=== PATIENT | male | born 1975 | race African-American/Black ===

== ENCOUNTER 2020-06-05 18:11 | Emergency (ER) | payer OTHER ==
[~2020-06-05] VITALS: Ht 172.7 cm; Wt 111.7 kg
[2020-06-05 18:21] VITALS: BP 123/76
--- NOTE | 2020-06-05 19:12 | PHYS DOC ---
Past History Past Medical History: Diabetes, Hypertension (MOLLY CARBAJAL APRN) Past Surgical History: No Surgical History (MOLLY CARBAJAL APRN) Alcohol Use: None (MOLLY CARBAJAL APRN) Adult General Chief Complaint Chief Complaint: FOREIGN BODY HPI HPI Patient is a 45-year-old male presents emergency department with chief complaint he thinks but is not sure he might have broken a needle off in his arm while giving himself his insulin shot just prior to arrival. Patient states he was given his normal NPH dose into his right tricep when he noticed the needle was not on the syringe after the injection. Patient denies any pain or sensations of foreign body to his right triceps area, states it did not bleed, states he looked but could not find any protruding needles from his arm. Patient states he is here to see if there is a needle still left in his right triceps area. Patient denies any other physical complaints or physical concerns. (MOLLY CARBAJAL APRN) Review of Systems Review of Systems 14 body systems of review of systems have been reviewed. See HPI for pertinent positives and negative responses, otherwise all other systems are negative, nonpertinent or noncontributory. (MOLLY CARBAJAL APRN) Allergies Allergies Allergies Coded Allergies Type Severity Reaction Last Updated Verified No Known Drug Allergies 06/05/20 No (MOLLY CARBAJAL APRN) Physical Exam Physical Exam Constitutional: Well developed, well nourished, no acute distress, non-toxic appearance. 45-year-old male no apparent distress HENT: Normocephalic, atraumatic, bilateral external ears normal, oropharynx moist, no oral exudates, nose normal. Eyes: Conjunctiva appear normal, no drainage appreciated, patient tracking normally with eyes. Cardiovascular: No peripheral cyanosis, distal cap refill less than 2 seconds. Lungs & Thorax: Patient in no apparent respiratory distress, no audible adventitious lung sounds appreciated. Skin: Warm, dry, no erythema, no rash. See extremity note. Extremities: No tenderness, no cyanosis, no clubbing, ROM intact, no edema. Examined right triceps area where patient believes he may have injected himself and broken a needle off with his insulin syringe just prior to arrival. No foreign bodies appreciated. No signs of ecchymosis or bleeding appreciated. Full range of motion of right upper extremity, no loss of sensation distally, distal cap refill less than 2 seconds, +2 radial pulse. Neurologic: Alert and oriented X 3, normal motor function, normal sensory function, no focal deficits noted. [] Psychologic: Affect normal, judgement normal, mood normal. [] (MOLLY CARBAJAL APRN) Current Patient Data Vital Signs Vital Signs Date Time Temp Pulse Resp B/P (MAP) Pulse Ox O2 Delivery O2 Flow Rate FiO2 06/05/20 18:21 98.0 88 18 123/76 (92) 97 Room Air (MOLLY CARBAJAL APRN) EKG EKG [] (MOLLY CARBAJAL APRN) Radiology/Procedures Radiology/Procedures PATIENT: ALONDRA TSANG ACCOUNT: [id number] : 1975 LOCATION: ER AGE: 45 SEX: M EXAM STATUS: REG ER ORD. PHYSICIAN: MOLLY CARBAJAL APRN REASON: Insulin needle broke off in distal third tricep area right arm PROCEDURE: HUMERUS RIGHT Exam: Right humerus 2 views INDICATION: Insulin needle broke off and distal triceps TECHNIQUE: Frontal and lateral views of the right humerus Comparisons: None FINDINGS: Bone mineralization is normal. No acute or healed fractures. Soft tissues are unremarkable. Joint spaces are well-maintained. IMPRESSION: No acute osseous abnormality. No radiopaque foreign body identified. Electronically signed by: Selam Smalls MD (06/05/2020 7:26 PM) [facility] DICTATED AND SIGNED BY: SELAM SMALLS MD DATE: 06/05/201923 CC: MOLLY CARBAJAL APRN; PCP,NO ~MTH0 0 (MOLLY CARBAJAL APRN) Heart Score C/O Chest Pain: No Risk Factors: Risk Factors: DM, Current or recent (<one month) smoker, HTN, HLP, family history of CAD, obesity. Risk Scores: Risk Factors: DM, Current or recent (<one month) smoker, HTN, HLP, family history of CAD, obesity. (MOLLY CARBAJAL APRN) Course & Med Decision Making Course & Med Decision Making Pertinent Labs and Imaging studies reviewed. (See chart for details) 45-year-old male, vital signs reviewed, presents emergency department concerning a possible foreign body in his right triceps area. Physical examination was unremarkable, unable to visualize nor palpate foreign body in right triceps area, related to insulin needles very small size, will order x-ray imaging to rule out foreign body. Patient denied any pain. No foreign body found by x-ray imaging, discussed with patient that needle possibly fell out onto floor and he was unable to find it. Patient agrees with this as he does not have any pain or discomfort in that area. Patient was relieved to know he has no needle stuck in his arm. Patient was given discharge home instructions, follow-up with primary care as needed, return emergency department for worsening symptoms or other concerns, patient was discharged home without incident. Diagnosis feared condition not demonstrated. (MOLLY CARBAJAL APRN) Dragon Disclaimer Dragon Disclaimer This electronic medical record was generated, in whole or in part, using a voice recognition dictation system. (MOLLY CARBAJAL APRN) Attending Co-Sign The patient was seen and interviewed as well as examined at the bedside. The chart was reviewed. The case was discussed. Agree with the plan of care. (KAL REYES DO) Departure Departure: Impression: Primary Impression: Feared condition not demonstrated Disposition: 01 HOME / SELF CARE / HOMELESS Condition: GOOD Referrals: PCP,NO (PCP) Additional Instructions: You were seen in emergency department for a possible needle stuck in your right arm. An x-ray was performed and no needle was seen. It is quite possible as we discussed the needle came out and fell on the floor and you are unable to find it. Please return to the emergency department for worsening symptoms or other concerns, follow-up with your primary care as needed. EMERGENCY DEPARTMENT GENERAL DISCHARGE INSTRUCTIONS Thank you for coming to [facility] (ED) today and trusting us with you care. We trust that you had a positivie experience in our Emergency Department. If you wish to speak to the department management, you may call the director at [phone]. YOUR FOLLOW UP INSTRUCTIONS ARE FOLLOWS: 1. Do you have a private Doctor? If you do not have a private doctor, please ask for a resource list of physicians or clinics that may be able to assist you with follow up care. 2. The Emergency Physician has interpreted your x-rays. The X-Ray specialist will also review them. If there is a change in the findings, you will be notified in 48 hours when at all possible. 3. A lab test or culture has been done, your results will be reviewed and you will be notified if you need a change in treatment. ADDITIONAL INSTRUCTIONS AND INFORMATION: 1. Your care today has been supervised by a physician who is specially trained in emergency care. Many problems require more than one evaluation for a complete diagnosis and treatment. We recommend that you schedule your follow up appointment as recommended to ensure complete treatment of you illness or injury. If you are unable to obtain follow up care and continue to have a problem, or if your condition worsens, we recommend that you return to the ED. 2. We are not able to safely determine your condition over the phone nor are we able to give sound medical advice over the phone. For these safety reasons, if you call for medical advice we will ask you to come to the ED for further evaluation. 3. If you have any questions regarding these discharge instructions please call the ED at [phone]. SAFETY INFORMATION: In the interest of safety, wellness, and injury prevention; we encourage you to wear your sealbelt, if you smoke; quite smoking, and we encourage family to use a protective helmet for bicycling and other sporting events that present an increased risk for head injury. IF YOUR SYMPTOMS WORSEN OR NEW SYMPTOMS DEVELOP, OR YOU HAVE CONCERNS ABOUT YOUR CONDITION; OR IF YOUR CONDITION WORSENS WHILE YOU ARE WAITING FOR YOUR FOLLOW UP APPOINTMENT; EITHER CONTACT YOUR PRIMARY CARE DOCTOR, THE PHYSICIAN WHOSE NAME AND NUMBER YOU WERE GIVEN, OR RETURN TO THE ED IMMEDIATELY. MOLLY CARBAJAL APRN Jun 05, 2020 19:12 KAL REYES DO Jun 06, 2020 01:41
--- NOTE | 2020-06-05 19:29 | RAD ---
Exam: Right humerus 2 views INDICATION: Insulin needle broke off and distal triceps TECHNIQUE: Frontal and lateral views of the right humerus Comparisons: None FINDINGS: Bone mineralization is normal. No acute or healed fractures. Soft tissues are unremarkable. Joint spa juhi are well-maintained. IMPRESSION: No acute osseous abnormality. No radiopaque foreign body identified. Electronically signed by: Selam Aaron MD (06/05/2020 7:26 PM) MARIANN
== END 2020-06-05 20:07 | disposition home or self-care (01) ==
LOC: ER 18:11
DX: Z71.1 Person with feared health complaint in whom no diagnosis is made (principal); E11.9 Type 2 diabetes mellitus without complications; I10 Essential (primary) hypertension
CPT/HCPCS: 73060; 99283

== ENCOUNTER 2020-06-06 19:07 | Emergency (ER) | payer OTHER ==
[~2020-06-06] VITALS: Ht 172.7 cm; Wt 111.7 kg
[2020-06-06 21:32] LABS: BILIRUBIN,URINE NEG (NEG); CLARITY,URINE CLEAR; COLOR,URINE COLORLESS; GLUCOSE,URINE >=1000 mg/dL (NEG)
[2020-06-06 21:33] LABS: BACTERIA,URINE 0 /HPF (0-FEW); NITRITE,URINE NEG (NEG); RBC,URINE 0 /HPF (0-2); UROBILINOGEN,URINE 0.2 mg/dL (0.2 mg/dL); WBC,URINE 0 /HPF (0-4)
[2020-06-06 21:40] LABS: CALCIUM 9.6 mg/dL (8.5-10.1); CREATININE 1.8 mg/dL (0.7-1.3); GFR 49.8; POTASSIUM 5.1 mmol/L (3.5-5.1)
[2020-06-06] MEDS ORDERED: INSULIN REGULAR 100 UNIT/ML 3ML VIAL. IV ONE (22:00)
[2020-06-06] MEDS ORDERED: IV NORMAL SALINE 1,000ML 1,000 ML IV ONE (22:00)
[2020-06-07] MEDS ORDERED: LANC1COM6 MC (00:07)
[2020-06-07] MEDS ORDERED: BLOO-1396 MC (00:07)
--- NOTE | 2020-06-07 00:07 | PHYS DOC ---
Past History Past Medical History: Diabetes, Hypertension Past Surgical History: No Surgical History Alcohol Use: None Adult General Chief Complaint Chief Complaint: BLOOD SUGAR PROBLEM [facility] HPI Patient is a 45yo t2DM male presenting for hyperglycemia. He reports being recently released from jailed and was started on NPH insulin for his diabetes. His last HA1C is unknown. He has insulin at home but doesn't check his FSBG, states he can tell when it's high and gives insulin accordingly. He presents complaing of classic hyperglycemia symptoms such as thirst, increased hunger and urine output. He wants to be switched to sliding scale insulin today Review of Systems Review of Systems Fourteen body systems of review of systems have been reviewed. See HPI for pertinent positives and negative responses, other sage all other systems are negative, non-pertinent or non-contributory Current Medications Current Medications Current Medications Medications (Trade) Dose Ordered Sig/Grace Start Time Stop Time Status Last Admin Dose Admin Insulin Human Regular (HumuLIN R VIAL) 5 unit 1X ONCE 06/06/20 22:00 06/06/20 22:01 DC 06/06/20 22:28 5 UNIT Sodium Chloride 1,000 ml @ 1,000 mls/hr 1X ONCE 06/06/20 22:00 06/06/20 22:59 DC 06/06/20 22:27 1,000 MLS/HR Allergies Allergies Allergies Coded Allergies Type Severity Reaction Last Updated Verified No Known Drug Allergies 06/05/20 No Physical Exam Physical Exam Constitutional: Well developed, well nourished, no acute distress, non-toxic appearance. HENT: Normocephalic, atraumatic, bilateral external ears normal, oropharynx moist, no oral exudates, nose normal. Eyes: PERRLA, EOMI, conjunctiva normal, no discharge. Neck: Normal range of motion, no tenderness, supple, no stridor. Cardiovascular: Heart rate regular, sinus rhythm, no murmurs rubs or gallops Lungs & Thorax: Bilateral breath sounds clear to auscultation Abdomen: Bowel sounds normal, soft, no tenderness, no masses, no pulsatile masses. Nonsurgical abdomen, no peritoneal signs Skin: Warm, dry, no erythema, no rash. Back: No tenderness, no CVA tenderness. Extremities: No tenderness, no cyanosis, no clubbing, ROM intact, no edema. Neurologic: Alert and oriented X 3, grossly normal motor & sensory function, no focal deficits noted. Psychologic: Affect normal, judgement normal, mood normal. Current Patient Data Vital Signs Vital Signs Date Time Temp Pulse Resp B/P (MAP) Pulse Ox O2 Delivery O2 Flow Rate FiO2 06/06/20 19:59 97.0 89 16 138/90 (106) 96 Room Air Lab Results Laboratory Tests Test 06/06/20 19:59 06/06/20 20:47 06/06/20 20:58 06/06/20 23:05 Urine Collection Type Unknown Urine Color Colorless Urine Clarity Clear Urine pH 6.5 Urine Specific [place] 1.010 Urine Protein Neg (NEG-TRACE) Urine Glucose (UA) >=1000 mg/dL (NEG) Urine Ketones (Stick) Neg mg/dL (NEG) Urine Blood Neg (NEG) Urine Nitrite Neg (NEG) Urine Bilirubin Neg (NEG) Urine Urobilinogen Dipstick 0.2 mg/dL (0.2 mg/dL) Urine Leukocyte Esterase Neg (NEG) Urine RBC 0 /HPF (0-2) Urine WBC 0 /HPF (0-4) Urine Squamous Epithelial Cells None /LPF Urine Bacteria 0 /HPF (0-FEW) Glucose (Fingerstick) 564 mg/dL (70-99) *H 471 mg/dL (70-99) H Sodium Level 131 mmol/L (136-145) L Potassium Level 5.1 mmol/L (3.5-5.1) Chloride Level 93 mmol/L (98-107) L Carbon Dioxide Level 29 mmol/L (21-32) Anion Gap 9 (6-14) Blood Urea Nitrogen 28 mg/dL (8-26) H Creatinine 1.8 mg/dL (0.7-1.3) H Estimated GFR (Cockcroft-Gault) 49.8 Glucose Level 620 mg/dL (70-99) *H Calcium Level 9.6 mg/dL (8.5-10.1) EKG EKG [] Radiology/Procedures Radiology/Procedures [] Heart Score C/O Chest Pain: No HEART Score for Chest Pain: HEART Score for Chest Pain Response (Comments) Value History Slighlty/Non-Suspicious 0 Age < 45 0 Risk Factors >3 Risk Factors or Hx CAD 2 Total 2 Risk Factors: Risk Factors: DM, Current or recent (<one month) smoker, HTN, HLP, family history of CAD, obesity. Risk Scores: Risk Factors: DM, Current or recent (<one month) smoker, HTN, HLP, family history of CAD, obesity. Course & Med Decision Making Course & Med Decision Making Hemodynamically stable with HPI concerning for poorly managed t2dm. PE unremarkable. ER workup concerning for hyperglycemia and SABRINA vs CKD. IVF rehydration and IV insulin improved FSBG. Patient started demanding food during visit. Started eating candy bar during visit when discussion was had regarding trying to decrease his FSBG. 25mins patient/diabetes educated given to patient. I discussed role of admission for continued glycemic control and IVF rehydration but he declined. I advised he keep NPH because he has plenty of this and to use/actually check his FSBG daily RX glucometer, lancets, test strips etc written and close PCP/health department follow up was discussed Patient left AMA prior to receiving discharge materials and receiving more education Dragon Disclaimer Dragon Disclaimer This electronic medical record was generated, in whole or in part, using a voice recognition dictation system. Departure Departure: Impression: Primary Impression: Uncontrolled type 2 diabetes mellitus with hyperglycemia Additional Impression: SABRINA (acute kidney injury) Disposition: LEFT AWOL/ELOPED Condition: GUARDED Referrals: PCPSARA (PCP) Patient Instructions: Acute Kidney Injury, Hyperglycemia Additional Instructions: As discussed prior to ER departure, you were offered admission for your acute kidney injury and high blood sugar, you refused. As such, you accept the risks discussed of worsened high blood sugar Scripts Lancets/Blood Glucose Strips (Lancet 30G-Glucose Test Strip) 1 Each Combo..pkg EACH MC for HYPERGLYCEMIA, #100 Check your fingerstick blood sugar 30 minutes before every meal at least 3 times daily Prov: PENELOPE REYES DO 06/07/20 Lancets/Blood Glucose Strips (Lancet 30G-Glucose Test Strip) 1 Each Combo..pkg EACH MC for HYPERGLYCEMIA, #100 Please check fingerstick blood sugar 3 times daily before meals Prov: PENELOPE REYES DO 06/07/20 Blood-Glucose Meter (Accu-Chek Guide Me Glucose Mtr) 1 Each Each EACH MC for GLUCOSE CONTROL, #1 Please check your fingerstick blood sugar before every meal at least 3 times daily and keep log for primary care physician review Prov: PENELOPE REYES DO 06/07/20 Problem Qualifiers PENELOPE REYES DO Jun 07, 2020 00:07
[2020-06-07 00:09] VITALS: BP 145/94
== END 2020-06-07 00:14 | disposition left against medical advice (07) ==
LOC: ER 19:07
DX: N17.9 Acute kidney failure, unspecified (principal); E11.65 Type 2 diabetes mellitus with hyperglycemia; I10 Essential (primary) hypertension
CPT/HCPCS: 36415; 80048; 81001; 82947; 96361; 96374; 99283; J1815; J7030

== ENCOUNTER 2020-06-07 17:46 | Emergency (ER) | payer OTHER ==
[~2020-06-07] VITALS: Ht 172.7 cm; Wt 111.7 kg
[~2020-06-07 17:46] MED LIST: BLOO-1396 MC; LANC1COM6 MC
--- NOTE | 2020-06-07 18:12 | PHYS DOC ---
Past History Past Medical History: Diabetes, Hypertension Past Surgical History: No Surgical History Alcohol Use: None Adult General Chief Complaint Chief Complaint: BLOOD SUGAR PROBLEM HPI HPI Patient is a 45-year-old male who presents for hyperglycemia. He was seen at our facility by myself yesterday. I offered him admission at that time due to hyperglycemia and SABRINA but patient left AMA. He has poor health/medical literacy, he is a recently diagnosed type II diabetic and is on NPH insulin, does not check his blood sugars daily. I educated patient extensively on diabetes yesterday and wrote prescription for glucometer, lancets, blood strips etc., patient did not fill these today. He presents wanting to "fix my kidneys and get my sugar under 200 today". He was mad that he was not fed food yesterday and so, he states he came prepared today and has packaged pizza and candy bars for his visit. No fever, no significant changes in health since seen 24 hours ago Review of Systems Review of Systems Fourteen body systems of review of systems have been reviewed. See HPI for pertinent positives and negative responses, other sage all other systems are negative, non-pertinent or non-contributory Allergies Allergies Allergies Coded Allergies Type Severity Reaction Last Updated Verified No Known Drug Allergies 06/05/20 No Physical Exam Physical Exam Constitutional: Well developed, well nourished, no acute distress, non-toxic appearance. HENT: Normocephalic, atraumatic, bilateral external ears normal, oropharynx moist, no oral exudates, nose normal. Eyes: PERRLA, EOMI, conjunctiva normal, no discharge. Neck: Normal range of motion, no tenderness, supple, no stridor. Cardiovascular: Heart rate regular, sinus rhythm, no murmurs rubs or gallops Lungs & Thorax: Bilateral breath sounds clear to auscultation Abdomen: Bowel sounds normal, soft, no tenderness, no masses, no pulsatile masses. Nonsurgical abdomen, no peritoneal signs Skin: Warm, dry, no erythema, no rash. Back: No tenderness, no CVA tenderness. Extremities: No tenderness, no cyanosis, no clubbing, ROM intact, no edema. Neurologic: Alert and oriented X 3, grossly normal motor & sensory function, no focal deficits noted. Psychologic: Affect normal, judgement normal, mood normal. Current Patient Data Vital Signs Vital Signs Date Time Temp Pulse Resp B/P (MAP) Pulse Ox O2 Delivery O2 Flow Rate FiO2 06/07/20 18:01 98.4 98 16 124/82 (96) 98 Room Air Lab Results Laboratory Tests Test 06/07/20 18:26 White Blood Count 6.5 x10^3/uL Red Blood Count 4.95 x10^6/uL Hemoglobin 13.0 g/dL Hematocrit 40.0 % Mean Corpuscular Volume 81 fL Mean Corpuscular Hemoglobin 26 pg Mean Corpuscular Hemoglobin Concent 33 g/dL Red Cell Distribution Width 15.0 % Platelet Count 171 x10^3/uL Neutrophils (%) (Auto) 55 % Lymphocytes (%) (Auto) 32 % Monocytes (%) (Auto) 10 % Eosinophils (%) (Auto) 3 % Basophils (%) (Auto) 1 % Neutrophils # (Auto) 3.5 x10^3uL Lymphocytes # (Auto) 2.0 x10^3/uL Monocytes # (Auto) 0.7 x10^3/uL Eosinophils # (Auto) 0.2 x10^3/uL Basophils # (Auto) 0.0 x10^3/uL Sodium Level 130 mmol/L Potassium Level 4.7 mmol/L Chloride Level 94 mmol/L Carbon Dioxide Level 27 mmol/L Anion Gap 9 Blood Urea Nitrogen 26 mg/dL Creatinine 1.6 mg/dL Estimated GFR (Cockcroft-Gault) 57.1 BUN/Creatinine Ratio 16 Glucose Level 688 mg/dL Calcium Level 8.7 mg/dL Total Bilirubin 0.4 mg/dL Aspartate Amino Transf (AST/SGOT) 16 U/L Alanine Aminotransferase (ALT/SGPT) 49 U/L Alkaline Phosphatase 74 U/L Total Protein 7.5 g/dL Albumin 3.7 g/dL Albumin/Globulin Ratio 1.0 Current Medications Medications (Trade) Dose Ordered Sig/Grace Route PRN Reason Start Time Stop Time Status Last Admin Dose Admin Sodium Chloride 1,000 ml @ 1,000 mls/hr 1X ONCE IV 06/07/20 18:15 06/07/20 19:14 DC 06/07/20 18:15 Insulin Human Regular (HumuLIN R VIAL) 10 unit 1X ONCE IV 06/07/20 19:15 06/07/20 19:16 DC 06/07/20 19:25 EKG EKG [] Radiology/Procedures Radiology/Procedures [] Heart Score C/O Chest Pain: No HEART Score for Chest Pain: HEART Score for Chest Pain Response (Comments) Value History Slighlty/Non-Suspicious 0 Age < 45 0 Risk Factors >3 Risk Factors or Hx CAD 2 Total 2 Risk Factors: Risk Factors: DM, Current or recent (<one month) smoker, HTN, HLP, family history of CAD, obesity. Risk Scores: Risk Factors: DM, Current or recent (<one month) smoker, HTN, HLP, family history of CAD, obesity. Course & Med Decision Making Course & Med Decision Making VSS. HPI concerning for poorly controlled T2DM. PE unremarkable ER workup showing no DKA or other concerning emergent/surgical abnormalities IVF rehydration and 10u insulin administered with improvement in FSBG. Patient eating during visit and FSBG >200 so additional 5u given I spoke with hospitalist and reviewed that patient did NOT have any sort of admission criteria. I reviewed this with patient. He has poor health literacy. I spent 35mins educating on diabetes and need to establish with PCP and/or see health dept. Strict return precautions were discussed, all questions and concerns addressed. This patient required critical care. Due to the fact that the patient required a significant amount of one on one physician patient contact time, ordering and review of studies, arranging urgent treatment with development of a management plan, evaluation of patients response to treatment with frequent reassessments, and discussions with other providers this patient required critical care time 35mins Critical care time was indicated due to the inherent instability and/or potential for instability in this patient. The critical care time that is allocated to this patient is above and beyond any time spent on any other billable procedures performed on this patient. Dragon Disclaimer Dragon Disclaimer This electronic medical record was generated, in whole or in part, using a voice recognition dictation system. Departure Departure: Impression: Primary Impression: Hyperglycemia due to type 2 diabetes mellitus Additional Impression: Elevated serum creatinine Disposition: HOME / SELF CARE / HOMELESS Condition: IMPROVED Referrals: PCPSARA (PCP) Patient Instructions: Hyperglycemia, [id number] Additional Instructions: As discussed prior to your departure, your blood sugar improved with IV insulin. You were given IV fluid rehydration and insulin 3 or IV which improved your blood sugar level. You need to fill your previously prescribed glucometer with lancets and test strips, you need to check your blood sugar at least 3 times daily before each meal with a goal of keeping your blood sugar between 100-200 at all times. As discussed, please utilize attached resources to establish care with a local primary care provider. In addition, you can seek care at the local health department who might be able to offer and advise you on other local resources in the area for continued health care. If any concerning signs or symptoms present prior to outpatient follow-up please do not hesitate to come back for repeat evaluation. Is a pleasure to take care of you and I wish you the best going forward Problem Qualifiers PENELOPE REYES DO Jun 07, 2020 18:12
[2020-06-07] MEDS ORDERED: IV NORMAL SALINE 1,000ML 1,000 ML IV ONE (18:15)
[2020-06-07 18:48] LABS: BASO % 1 % (0-3); EOS # 0.2 x10^3/uL (0.0-0.7); EOS % 3 % (0-3); LYMPH % 32 % (24-48); MEAN CORPUSCULAR HEMOGLOBIN 26 pg (25-35); MEAN CORPUSCULAR HGB CONC 33 g/dL (31-37); MEAN CORPUSCULAR VOLUME 81 fL (79-100); MONO # 0.7 x10^3/uL (0.0-1.1); MONO % 10 % (0-9); NEUT # 3.5 x10^3uL (1.8-7.7); NEUT % 55 % (31-73); PLATELET COUNT 171 x10^3/uL (140-400); RED BLOOD COUNT 4.95 x10^6/uL (4.30-5.70); WHITE BLOOD COUNT 6.5 x10^3/uL (4.0-11.0)
[2020-06-07 18:59] LABS: CALCIUM 8.7 mg/dL (8.5-10.1); CREATININE 1.6 mg/dL (0.7-1.3); GFR 57.1; POTASSIUM 4.7 mmol/L (3.5-5.1)
[2020-06-07 19:01] LABS: ALBUMIN 3.7 g/dL (3.4-5.0); TOTAL BILIRUBIN 0.4 mg/dL (0.2-1.0); TOTAL PROTEIN 7.5 g/dL (6.4-8.2)
[2020-06-07] MEDS ORDERED: INSULIN REGULAR 100 UNIT/ML 3ML VIAL. IV ONE ×2 (19:15→21:15)
[2020-06-07 19:51] LABS: BILIRUBIN,URINE NEG (NEG); CLARITY,URINE CLEAR; COLOR,URINE YELLOW; GLUCOSE,URINE >=1000 mg/dL (NEG)
[2020-06-07 19:52] LABS: BACTERIA,URINE 0 /HPF (0-FEW); NITRITE,URINE NEG (NEG); RBC,URINE 0 /HPF (0-2); SQUAMOUS EPITHELIAL CELL,UR OCC /LPF; UROBILINOGEN,URINE 0.2 mg/dL (0.2 mg/dL); WBC,URINE 0 /HPF (0-4)
[2020-06-07 20:59] VITALS: BP 106/57
== END 2020-06-07 21:34 | disposition home or self-care (01) ==
LOC: ER 17:46
DX: E11.65 Type 2 diabetes mellitus with hyperglycemia (principal); R79.89 Other specified abnormal findings of blood chemistry; I10 Essential (primary) hypertension
CPT/HCPCS: 36415; 80053; 81001; 82947; 85025; 96361; 96374; 96376; 99284; J1815; J7030

== ENCOUNTER 2020-06-21 21:47 | Emergency (ER) | payer SELFPAY ==
[~2020-06-21] VITALS: Ht 172.7 cm; Wt 111.7 kg
[2020-06-21] MEDS ORDERED: IV RINGERS SOLUTION,LACTATED 1,000 ML IV ONE ×2 (22:00→23:00)
[2020-06-21 22:20] LABS: HEMATOCRIT 41.4 % (39.0-53.0); HEMOGLOBIN 13.4 g/dL (13.0-17.5); RED BLOOD COUNT 5.19 x10^6/uL (4.30-5.70); RED CELL DISTRIBUTION WIDTH 14.8 % (11.5-14.5); WHITE BLOOD COUNT 7.3 x10^3/uL (4.0-11.0)
[2020-06-21 22:33] LABS: CALCIUM 9.8 mg/dL (8.5-10.1); CREATININE 1.6 mg/dL (0.7-1.3); GFR 57.1; POTASSIUM 4.5 mmol/L (3.5-5.1)
[2020-06-21 22:36] LABS: ALBUMIN 3.9 g/dL (3.4-5.0); MAGNESIUM 2.2 mg/dL (1.8-2.4); PHOSPHORUS 3.9 mg/dL (2.6-4.7); TOTAL BILIRUBIN 0.4 mg/dL (0.2-1.0)
[2020-06-21 23:23] LABS: CLARITY,URINE CLEAR; COLOR,URINE STRAW
[2020-06-21 23:26] LABS: BACTERIA,URINE FEW /HPF (0-FEW); BILIRUBIN,URINE NEG (NEG); GLUCOSE,URINE >=1000 mg/dL (NEG); NITRITE,URINE NEG (NEG); RBC,URINE 0 /HPF (0-2); SQUAMOUS EPITHELIAL CELL,UR OCC /LPF; UROBILINOGEN,URINE 0.2 mg/dL (0.2 mg/dL); WBC,URINE 0 /HPF (0-4)
[2020-06-22] MEDS ORDERED: IV RINGERS SOLUTION,LACTATED 1,000 ML IV ONE
[2020-06-22] MEDS ORDERED: INSULIN REGULAR 100 UNIT/ML 3ML VIAL. IV ONE ×2 (01:45)
--- NOTE | 2020-06-22 02:15 | PHYS DOC ---
Past History Past Medical History: Diabetes, Hypertension Past Surgical History: No Surgical History Alcohol Use: None Adult General Chief Complaint Chief Complaint: HYPERGLYCEMIA HPI HPI Patient is a 45-year-old male with a past medical history significant for insulin-dependent diabetes who presents to the emergency department with a chief complaint of hyperglycemia. Patient states that he [facility] approximately 1-1/2 to 2 months ago and was given a short supply of his insulin. States that he ran out several days ago and was coming in because he checked his blood sugar and it was high. States he does have prescriptions but is at a alf house and is working on trying to get these filled and should be to get them filled on Wednesday. Denies headache, chest pain, shortness of breath, abdominal pain, nausea, vomiting, dysuria, hematuria or blood in the stool. Denies any urinary frequency. States he is making urine and stool proximally normal for him. States he is otherwise eating and drinking normally for him. States he would like some information on local free clinics or primary care physician so he can get in with them to establish care and start managing his insulin medications. Review of Systems Review of Systems Review of systems otherwise unremarkable except noted in HPI Current Medications Current Medications Current Medications Medications (Trade) Dose Ordered Sig/Grace Start Time Stop Time Status Last Admin Dose Admin Insulin Human Regular (HumuLIN R VIAL) 5 unit 1X ONCE 06/22/20 01:45 06/22/20 01:46 DC 06/22/20 01:45 5 UNIT Lactated Ringer's 1,000 ml @ 1,000 mls/hr 1X ONCE 06/22/20 00:00 06/22/20 00:59 DC 06/22/20 00:00 1,000 MLS/HR Allergies Allergies Allergies Coded Allergies Type Severity Reaction Last Updated Verified No Known Drug Allergies 06/05/20 No Physical Exam Physical Exam Constitutional: Well developed, well nourished, no acute distress, non-toxic appearance. [] HENT: Normocephalic, atraumatic, bilateral external ears normal, oropharynx moist, no oral exudates, nose normal. [] Eyes: conjunctiva normal, no discharge. [] Neck: Normal range of motion, no tenderness, supple, no stridor. [] Cardiovascular:Heart rate regular rhythm, no murmur [] Lungs & Thorax: Bilateral breath sounds clear to auscultation [] Abdomen: soft, no tenderness, no masses, no pulsatile masses. [] Skin: Warm, dry, no erythema, no rash. [] Extremities: No tenderness, ROM intact, no edema. [] Neurologic: Alert and oriented X 3, normal motor function, normal sensory function, no focal deficits noted. [] Psychologic: Affect normal, judgement normal, mood normal. [] Current Patient Data Vital Signs Vital Signs Date Time Temp Pulse Resp B/P (MAP) Pulse Ox O2 Delivery O2 Flow Rate FiO2 06/22/20 01:27 66 18 117/71 (86) 96 Room Air 06/21/20 21:57 98.6 Lab Results Laboratory Tests Test 06/21/20 22:00 06/21/20 22:17 06/21/20 23:35 06/22/20 00:43 White Blood Count 7.3 x10^3/uL (4.0-11.0) Red Blood Count 5.19 x10^6/uL (4.30-5.70) Hemoglobin 13.4 g/dL (13.0-17.5) Hematocrit 41.4 % (39.0-53.0) Mean Corpuscular Volume 80 fL (79-100) Mean Corpuscular Hemoglobin 26 pg (25-35) Mean Corpuscular Hemoglobin Concent 32 g/dL (31-37) Red Cell Distribution Width 14.8 % (11.5-14.5) H Platelet Count 192 x10^3/uL (140-400) POC Venous pH 7.47 (7.32-7.42) H POC Venous pCO2 42 mmHg (41-51) POC Venous pO2 46 mmHg (20-40) H Venous Blood HCO3 31 mmol/L (24-28) H POC Venous O2 Saturation (Olya) 84 % POC FiO2 21 Sodium Level 131 mmol/L (136-145) L Potassium Level 4.5 mmol/L (3.5-5.1) Chloride Level 92 mmol/L (98-107) L Carbon Dioxide Level 28 mmol/L (21-32) Anion Gap 11 (6-14) Blood Urea Nitrogen 22 mg/dL (8-26) Creatinine 1.6 mg/dL (0.7-1.3) H Estimated GFR (Cockcroft-Gault) 57.1 BUN/Creatinine Ratio 14 (6-20) Glucose Level 672 mg/dL (70-99) *H Calcium Level 9.8 mg/dL (8.5-10.1) Phosphorus Level 3.9 mg/dL (2.6-4.7) Magnesium Level 2.2 mg/dL (1.8-2.4) Total Bilirubin 0.4 mg/dL (0.2-1.0) Aspartate Amino Transferase (AST) 14 U/L (15-37) L Alanine Aminotransferase (ALT) 49 U/L (16-63) Alkaline Phosphatase 92 U/L (46-116) Total Protein 8.0 g/dL (6.4-8.2) Albumin 3.9 g/dL (3.4-5.0) Albumin/Globulin Ratio 1.0 (1.0-1.7) Urine Collection Type Unknown Urine Color Straw Urine Clarity Clear Urine pH 5.5 Urine Specific [place] 1.010 Urine Protein Neg (NEG-TRACE) Urine Glucose (UA) >=1000 mg/dL (NEG) Urine Ketones (Stick) Neg mg/dL (NEG) Urine Blood Neg (NEG) Urine Nitrite Neg (NEG) Urine Bilirubin Neg (NEG) Urine Urobilinogen Dipstick 0.2 mg/dL (0.2 mg/dL) Urine Leukocyte Esterase Neg (NEG) Urine RBC 0 /HPF (0-2) Urine WBC 0 /HPF (0-4) Urine Squamous Epithelial Cells Occ /LPF Urine Transitional Epithelial Cells Occ /LPF Urine Renal Epithelial Cells Occ /LPF Urine Bacteria Few /HPF (0-FEW) Glucose (Fingerstick) 515 mg/dL (70-99) *H 431 mg/dL (70-99) H Test 06/22/20 01:21 Glucose (Fingerstick) 400 mg/dL (70-99) H EKG EKG [] Radiology/Procedures Radiology/Procedures [] Heart Score C/O Chest Pain: No Risk Factors: Risk Factors: DM, Current or recent (<one month) smoker, HTN, HLP, family history of CAD, obesity. Risk Scores: Risk Factors: DM, Current or recent (<one month) smoker, HTN, HLP, family history of CAD, obesity. Course & Med Decision Making Course & Med Decision Making Patient is a 45-year-old male with past medical history significant for insulin- dependent diabetes who presents with hyperglycemia and requesting information on resources for local free clinics or primary care physicians. Vital signs not concerning. Physical exam noted above. Initial blood glucose at 672. Laboratory analysis notable for glucosuria but no ketonuria and a normal specific gravity. Blood gas with a pH of 7.46 and a bicarb of 30. Patient did not appear to be in DKA just hyperglycemic. Patient started on IV fluid resuscitation x3 of lactated Ringer's and given 2 5 mg doses of regular insulin. Monitoring patient's blood sugar in the ED with final blood sugar at 347. Patient states he felt well and was ready to be discharged home and did not want to stay in the emergency department anymore. Advised that it would probably be good to get blood sugar under 300. Patient was grateful but stated he was ready to go on home. Gave strict return precautions to the ED. Gave strict recommendations for calling free clinics and/or primary care physicians tomorrow to establish care. 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 Patient grateful, verbalized understanding and agreed with plan of discharge. [] Dragon Disclaimer Dragon Disclaimer This electronic medical record was generated, in whole or in part, using a voice recognition dictation system. Departure Departure: Impression: Primary Impression: Hyperglycemia Additional Impression: Glucosuria Disposition: HOME / SELF CARE / HOMELESS Condition: IMPROVED Referrals: PCP,SARA (PCP) SADAF LINARES MD Patient Instructions: Diabetes, Eating Away From Home, Diabetes, FAQs, Diabetic Ketoacidosis, Diets for Diabetes, Food Labeling Additional Instructions: Please read all of the attached information on diabetes and hyperglycemia very carefully. As discussed please continue to take your blood sugar several times a day and adjust your meals accordingly as discussed and noted in your education. You were given resources for local primary care physicians and local free clinics. Please call them all first thing in the morning to establish care as to be able to manage your diabetes and diabetic medications. Be sure to picking machine operator helper your insulin tomorrow as discussed and take it according to the schedule given to you in conjunction with taking your blood sugars frequently daily. You were offered admission to the hospital for continued evaluation and treatment of your hyperglycemia and need for tighter medication management but you politely declined. We discussed the risks of this including continued hyperglycemia, illness, diabetic ketoacidosis and rehospitalization leading to worsening illness and in the worst case scenario . He stated that he felt safe going home, picking up your insulin on Wednesday and trying to get a hold of a free clinic or primary care physician. Please come back to the emergency department immediately with new or concerning symptoms as discussed. Problem Qualifiers MALAIKA JACK MD June 22, 2020 02:14
[2020-06-22 02:30] VITALS: BP 115/68
== END 2020-06-22 02:30 | disposition home or self-care (01) ==
LOC: ER 21:47
DX: E11.65 Type 2 diabetes mellitus with hyperglycemia (principal); I10 Essential (primary) hypertension
CPT/HCPCS: 36415; 80053; 81001; 82803; 82947; 83735; 84100; 85027; 96361; 96374; 96376; 99285; J1815; J7120

== ENCOUNTER 2021-02-09 16:28 | Emergency (ER) | payer SELFPAY ==
[~2021-02-09] VITALS: Ht 172.7 cm; Wt 111.7 kg
[2021-02-09 16:50] VITALS: BP 150/63
--- NOTE | 2021-02-09 17:56 | PHYS DOC ---
Past History Past Medical History: Diabetes, Hypertension (TRUDY BANEGAS MD) Past Surgical History: No Surgical History (TRUDY BANEGAS MD) Alcohol Use: None (TRUDY BANEGAS MD) General Adult EDM: Chief Complaint: HYPERGLYCEMIA HPI: HPI: Patient is a 46-year male coming in for hyperglycemia. Patient went out of his insulin syringes and test strips. States he took some insulin yesterday. States he has not gotten the syringes or to prescription because he cannot afford them. Has a history of type 2 insulin-dependent diabetes. Versus polyuria and polydipsia. (TRUDY BANEGAS MD) Review of Systems: Review of Systems: All other systems within normal limits except for as noted in the HPI (TRUDY BANEGAS MD) Allergies: Allergies: Allergies Coded Allergies Type Severity Reaction Last Updated Verified No Known Drug Allergies 06/05/20 No (TRUDY BANEGAS MD) Physical Exam: PE: Constitutional: Well developed, well nourished, no acute distress, non-toxic appearance. [] HENT: Normocephalic, atraumatic, bilateral external ears normal, nose normal. [] Eyes: PERRLA, conjunctiva normal, no discharge. [] Neck: No rigidity, supple, no stridor. [] Cardiovascular: Regular rate and rhythm, brisk cap refill [] Lungs & Thorax: Non labored symmetric respirations, no tachypnea or respiratory distress [] Abdomen: Soft, nondistended. Skin: Warm, dry, no erythema, no rash. [] Back: Unremarkable Extremities: No deformities, range of motion grossly intact, no lower extremity edema [] Neurologic: Alert and oriented X 3, no focal deficits noted. [] Psychologic: Affect normal, judgement normal, mood normal. [] (TRUDY BANEGAS MD) Current Patient Data: Labs: Laboratory Tests Test 02/09/21 17:23 Glucose (Fingerstick) 563 mg/dL (70-99) *H (TRUDY BANEGAS MD) EKG: EKG: [] (TRUDY BANEGAS MD) Radiology/Procedures: Radiology/Procedures: [] (TRUDY BANEGAS MD) Heart Score: C/O Chest Pain: No Risk Factors: Risk Factors: DM, Current or recent (<one month) smoker, HTN, HLP, family history of CAD, obesity. Risk Scores: Score 0 - 3: 2.5% MACE over next 6 weeks - Discharge Home Score 4 - 6: 20.3% MACE over next 6 weeks - Admit for Clinical Observation Score 7 - 10: 72.7% MACE over next 6 weeks - Early Invasive Strategies (TRUDY BANEGAS MD) Course & Med Decision Making: Course & Med Decision Making Pertinent Labs and Imaging studies reviewed. (See chart for details) [] (TRUDY BANEGAS MD) Course & Med Decision Making After 20 units of regular insulin and 2 L of fluid, the patient's blood sugar has improved to 284. He has a normal anion gap. He is stable for discharge at this time. I have advised the patient to talk to his primary physician first thing in the morning and get replacement insulin and testing supplies. (KAL REYES DO) Dragon Disclaimer: Dragon Disclaimer: This electronic medical record was generated, in whole or in part, using a voice recognition dictation system. (TRUDY BANEGAS MD) Departure Departure: Impression: Primary Impression: Hyperglycemia due to type 2 diabetes mellitus Qualified Codes: E11.65 - Type 2 diabetes mellitus with hyperglycemia; Z79.4 - shelter (current) use of insulin Disposition: 01 HOME / SELF CARE / HOMELESS Condition: IMPROVED Referrals: PCP,SARA (PCP) Patient Instructions: Hyperglycemia, [id number] TRUDY BANEGAS MD Feb 09, 2021 17:56 KAL REYES DO Feb 09, 2021 21:13
--- NOTE | 2021-02-09 18:14 | EKG ---
[address] [address] Test Date: 2021-02-09 Test Time: 18:07:29 Pat Name: ALONDRA TSANG Department: Room: Gender: M [employer] Attendant: LEONIE : 1975 Requested By: TRUDY BANEGAS Order Number: [id number] Reading MD: Measurements Intervals [place] Rate: 96 P: 54 [place]: 150 QRS: -8 QRSD: 86 T: 14 QT: 324 QTc: 410 Interpretive Statements SINUS RHYTHM LEFTWARD AXIS OTHERWISE NORMAL ECG RI6.02 Compared to ECG 02/09/2021 17:46:10 Sinus tachycardia no longer present Left anterior fascicular block no longer present Incomplete right bundle-branch block no longer present
[2021-02-09 18:28] LABS: BASO # 0.1 x10^3/uL (0.0-0.2); BASO % 1 % (0-3); EOS # 0.2 x10^3/uL (0.0-0.7); EOS % 2 % (0-3); HEMOGLOBIN 14.7 g/dL (13.0-17.5); LYMPH # 3.3 x10^3/uL (1.0-4.8); LYMPH % 35 % (24-48); MEAN CORPUSCULAR HEMOGLOBIN 25 pg (25-35); MEAN CORPUSCULAR HGB CONC 31 g/dL (31-37); MEAN CORPUSCULAR VOLUME 80 fL (79-100); MONO # 0.6 x10^3/uL (0.0-1.1); MONO % 7 % (0-9); NEUT # 5.1 x10^3uL (1.8-7.7); NEUT % 55 % (31-73); PLATELET COUNT 209 x10^3/uL (140-400); RED BLOOD COUNT 5.89 x10^6/uL (4.30-5.70); RED CELL DISTRIBUTION WIDTH 17.8 % (11.5-14.5); WHITE BLOOD COUNT 9.2 x10^3/uL (4.0-11.0)
[2021-02-09 18:39] LABS: ALBUMIN 3.9 g/dL (3.4-5.0); ALBUMIN/GLOBULIN RATIO 1.1 (1.0-1.7); CREATININE 1.2 mg/dL (0.7-1.3); GFR 79.2; MAGNESIUM 2.4 mg/dL (1.8-2.4); PHOSPHORUS 4.8 mg/dL (2.6-4.7); POTASSIUM 4.8 mmol/L (3.5-5.1); TOTAL BILIRUBIN 0.2 mg/dL (0.2-1.0); TOTAL PROTEIN 7.6 g/dL (6.4-8.2)
[2021-02-09] MEDS ORDERED: INSULIN REGULAR 100 UNIT/ML 3ML VIAL. IV ONE ×3 (19:00→21:30)
[2021-02-09] MEDS ORDERED: IV NORMAL SALINE 1,000ML 1,000 ML IV ONE ×2 (19:00→20:15)
[2021-02-09 19:58] LABS: BILIRUBIN,URINE NEG (NEG); CLARITY,URINE CLEAR; COLOR,URINE YELLOW; GLUCOSE,URINE >=1000 mg/dL (NEG); NITRITE,URINE NEG (NEG); UROBILINOGEN,URINE 0.2 mg/dL (0.2 mg/dL)
[2021-02-09 19:59] LABS: BACTERIA,URINE 0 /HPF (0-FEW); RBC,URINE 0 /HPF (0-2); WBC,URINE 0 /HPF (0-4)
== END 2021-02-09 21:43 | disposition home or self-care (01) ==
LOC: ER 16:32
DX: E11.65 Type 2 diabetes mellitus with hyperglycemia (principal); Z79.4 Long term (current) use of insulin; I10 Essential (primary) hypertension
CPT/HCPCS: 36415; 80053; 81001; 82803; 82947; 83735; 84100; 85025; 93005; 96361; 96374; 96376; 99284; J1815; J7030